=== PATIENT | female | born 1945 | race Caucasian/White ===

== ENCOUNTER → 2018-11-28 | Outpatient (CLI) | payer OTHER, BC | LOC: FIMAGING 10:27 | PROVIDERS: ATTEND Internal Medicine Cardiovascular Disease | DX: R00.2 Palpitations (principal); I10 Essential (primary) hypertension ==

== ENCOUNTER → 2018-12-19 | Outpatient (CLI) | payer OTHER, BC | LOC: CIMAGING 13:07 ==